=== PATIENT | male | born 1945 | race Caucasian/White ===

== ENCOUNTER → 2018-10-02 09:13 | Outpatient (CLI) | payer MEDICARE, SELFPAY ==
[2018-10-02 09:52] LABS: Add Manual Diff / Slide Review NO; Basophils Absolute Auto 100 /uL (0-100); Basophils Percent Auto 0.9 % (0-2); Eosinophils Absolute Auto 100 /uL (0-450); Eosinophils Percent Auto 1.1 % (2-4); Hematocrit 44.7 % (41-53); Lymphocytes Absolute Auto 2200 /uL (1100-4500); Lymphocytes Percent Auto 21.9 % (25-40); Mean Corpuscular HGB Conc 33.5 % (30-36); Mean Corpuscular Hemoglobin 29.1 PG (26-34); Mean Corpuscular Volume 86.8 fL (80-100); Monocytes Absolute Auto 900 /uL (0-900); Monocytes Percent Auto 8.5 % (3-14); Neutrophils Absolute Auto 7000 /uL (1500-7000); Neutrophils Percent Auto 67.6 % (50-75); Platelet Count 256 X10^3/uL (150-400); Red Blood Cell Count 5.15 X10^6/uL (4.5-5.9); Red Cell Distribution Width 14.5 % (11.6-14.8); White Blood Cell Count 10.3 X10^3/uL (4.5-11.0)
[2018-10-02 10:03] LABS: Alanine Aminotransferase 34 IU/L (21-72); Albumin 4.2 g/dL (3.5-5.0); Albumin Globulin Ratio 1.2 (1.0-2.8); Alkaline Phosphatase 97 U/L (38-126); Aspartate Aminotransferase 24 IU/L (17-59); Bilirubin Total 0.9 mg/dL (0.2-1.3); Blood Urea Nitrogen 18 mg/dL (9-20); Carbon Dioxide 26 mmol/L (22-32); Chloride 103 mmol/L (98-107); Cholesterol 149 mg/dL (140-199); Estimated Glomerular Filt Rate > 60.0 mL/min (>60); Globulin 3.4 g/dL (1.7-4.1); Glucose 145 mg/dL (80-110); HDL Cholesterol 40 mg/dL (40-60); HEMOLYSIS < 15 (0-50); LDL Cholesterol Calculated 89 mg/dL (<100); Potassium 4.5 mmol/L (3.4-5.1); Sodium 139 mmol/L (137-145); Total Protein 7.6 g/dL (6.3-8.2); Triglycerides 98 mg/dL (35-150); Uric Acid 6.9 mg/dL (3.5-8.5)
[2018-10-02 10:05] LABS: Erythrocyte Sedimentation Rate 11 MM/HR (0-15)
== END ==
PROVIDERS: PCP Internal Medicine; Visit Provider Podiatrist
DX: I10 Essential (primary) hypertension (principal); E78.5 Hyperlipidemia, unspecified
CPT/HCPCS: 36415; 80053; 80061; 84550; 85025; 85651

== ENCOUNTER → 2018-10-08 08:51 | Outpatient (CLI) | payer MEDICARE, SELFPAY ==
--- NOTE | 2018-10-08 | DI.MRI.S_ITS ---
PROCEDURE: MR FOOT LT WO/W CON INDICATIONS: LEFT TOE PAIN TECHNIQUE: Noncontrast sagittal T1 spin echo and T2 fast spin echo with fat saturation, long-axis T1 spin echo and T2 fast spin echo with fat saturation; short-axis T1 spin echo, proton density fast spin echo, and T2 fast spin echo with fat saturation through the forefoot. Post-contrast short axis, long axis, and sagittal T1 spin echo with fat saturation through the forefoot. COMPARISON: [facility] [place], CR, XR FOOT 3+ VIEWS LEFT, 09/30/2018, 10:42. FINDINGS: Image quality: Excellent. Bones and joints: No suspicious osseous enhancement. No definite bone marrow contusion or discrete fracture line seen. There is prominent osteophyte formation at the first MTP joint with dorsal involvement raises the possibility of hallux rigidus. First and TP joint effusion is present. There is mild marrow edema seen within the medial bipartite hallux sesamoid. Soft tissues: No suspicious soft tissue enhancement. There is first MTP synovitis. No definite erosions seen. The visualized plantar foot muscles demonstrate normal signal and bulk. Visualized flexor and extensor tendons appear intact, without tenosynovitis. The distal insertions of the peroneus brevis and longus tendons appear intact. The principal Lisfranc ligament appears intact. No soft tissue ganglion cysts or bursal fluid collections. Sagittal images demonstrate no evidence for plantar plate tears. 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 Please correlate clinically for possible hallux rigidus. Mild marrow edema within bipartite medial hallux sesamoid raises the possibility of acute or subacute sesamoiditis (although technically unknown etiology). First MTP joint synovitis, which could be reactive. No evidence of erosions. Dictated by: Min Prescott M.D. on 10/08/2018 at 11:44 Approved by: Min Prescott M.D. on 10/08/2018 at 11:54
== END ==
PROVIDERS: PCP Internal Medicine; Visit Provider Podiatrist
DX: M79.675 Pain in left toe(s) (principal); M19.072 Primary osteoarthritis, left ankle and foot; M65.872 Other synovitis and tenosynovitis, left ankle and foot
CPT/HCPCS: 73720

== ENCOUNTER → 2018-10-28 10:03 | Outpatient (CLI) | payer MEDICARE, SELFPAY ==
[2018-10-28 12:46] LABS: Vitamin B12 681 pg/mL (239-931)
== END ==
PROVIDERS: PCP Internal Medicine; Visit Provider Podiatrist
DX: G62.9 Polyneuropathy, unspecified (principal)
CPT/HCPCS: 36415; 82607

== ENCOUNTER → 2019-07-06 15:36 | Outpatient (ROUT) | payer MEDICARE, SELFPAY ==
[2019-07-06 16:18] LABS: Alanine Aminotransferase 18 IU/L (<50); Aspartate Aminotransferase 16 IU/L (17-59); BUN Creatinine Ratio 22.7 (6-22); Blood Urea Nitrogen 25 mg/dL (9-20); Calcium 9.8 mg/dL (8.4-10.2); Carbon Dioxide 27 mmol/L (22-32); Chloride 99 mmol/L (98-107); Cholesterol 163 mg/dL (140-199); Estimated Glomerular Filt Rate > 60.0 mL/min (>60); Glucose 112 mg/dL (80-110); HDL Cholesterol 65 mg/dL (40-60); HEMOLYSIS < 15 (0-50); LDL Cholesterol Calculated 73 mg/dL (<100); Potassium 4.8 mmol/L (3.4-5.1); Sodium 139 mmol/L (137-145); Triglycerides 125 mg/dL (35-150); Uric Acid 8.3 mg/dL (3.5-8.5)
== END ==
PROVIDERS: PCP Internal Medicine; Visit Provider Internal Medicine
DX: I10 Essential (primary) hypertension (principal); E78.5 Hyperlipidemia, unspecified; M10.472 Other secondary gout, left ankle and foot
CPT/HCPCS: 80048; 80061; 84450; 84460; 84550

== ENCOUNTER → 2019-07-13 14:15 | Outpatient (CLI) | payer MEDICARE, SELFPAY ==
--- NOTE | 2019-07-13 | DI.MRI.S_ITS ---
PROCEDURE: MR SHOULDER RT WO CON INDICATIONS: Pain in right shoulder TECHNIQUE: Noncontrast oblique coronal T2 fast spin echo with fat saturation, oblique sagittal T1 spin echo and T2 fast spin echo with fat saturation, axial T1 spin echo and T2 fast spin echo with fat saturation through the shoulder. COMPARISON: None. FINDINGS: Image quality: Diagnostic. Susceptibility artifact from prior rotator cuff tendon repair is seen.. Rotator cuff: There is full-thickness rupture of the distal supraspinatus and infraspinatus at their insertion on humeral head with 3.8 cm medial retraction of torn tendon fibers to the level of acromioclavicular joint. Distal subscapularis tendinosis and low-grade intrasubstance partial-thickness tear is also seen. Sagittal images demonstrate moderate supraspinatus and infraspinatus muscle atrophy. Bones and bursae: Extensive postsurgical changes in the acromioclavicular joint and greater tuberosity of humeral head are seen from prior rotator cuff tendon repair. Extensive susceptibility artifacts in superior lateral right shoulder soft tissue is also seen. No gross acute fracture or dislocation. Moderate osteoarthritic changes in acromioclavicular joint and glenohumeral joint are seen. Superior migration of humeral head in relation to glenoid is also noted. There is moderate amount of joint effusion and subacromial subdeltoid bursal fluid. No gross intra-articular loose body. Capsule and soft tissues: In the absence of intra-articular contrast, the labrum and glenohumeral ligaments appear intact. Intra-articular portion of long head biceps tendon is not well-seen, which may represent postsurgical changes versus proximal long head of biceps tendon rupture. The rotator interval appears normal, without fibrosis. The coracohumeral ligament is normal in thickness. IMPRESSION: 1. Prior rotator cuff tendon repair with postsurgical changes as above. 2. Full-thickness rupture of the distal supraspinatus and infraspinatus at their insertion on humeral head with 3.8 cm medial retraction of torn tendon fibers to the level of acromioclavicular joint. Tendinosis and low-grade intrasubstance partial-thickness tear involving distal subscapularis. Moderate supraspinatus and infraspina is muscle atrophy. 3. Extensive post surgical changes in acromioclavicular joint and humeral head. Moderate acromioclavicular joint and glenohumeral joint osteoarthritis. 4. No definite focal labral tear. Nonvisualization of intra-articular portion of long head of biceps tendon, which may represent postsurgical changes versus biceps tendon tear. Dictated by: Praveen Fuller M.D. on 07/13/2019 at 15:59 Approved by: Praveen Fuller M.D. on 07/13/2019 at 16:06
== END ==
PROVIDERS: PCP Internal Medicine; Visit Provider Orthopaedic Surgery
DX: M25.511 Pain in right shoulder (principal); M75.121 Complete rotator cuff tear or rupture of right shoulder, not specified as traumatic; M19.011 Primary osteoarthritis, right shoulder
CPT/HCPCS: 73221

== ENCOUNTER → 2019-09-22 09:55 | Outpatient (CLI) | payer MEDICARE, SELFPAY ==
--- NOTE | 2019-09-22 11:46 | DIET.PN ---
Diabetes Intake: Initial Assessment Assess: Mr. Yusuf is a 74 YOM referred for type 2 diabetes. He reports family history on his father?s side. He has had some prior education for pre-diabetes approximately 2 years ago, but feels discourages in ability to follow dietary suggestions. He stopped drinking soda and orange juice when he was diagnosed, but admits to eating out nearly daily. Since alf, he and his enjoy traveling and dining out at new places. He tries to replace starchy sides with vegetables, but generally orders entrees with sugary sauces. He is does not exercise, but is willing to start. He also admits to being comfortable with his weight, but recognizes the benefits of maintaining a healthy weight. He does monitor is FBG and weight daily. Labs: Per pt report: A1c: 6.7 (07/19) (7.5 at diagnosis) FB-120 Meds: metf 500 mg BID ; Lipitor: 10 mg Diet: per 24 hr recall: B: eggs or yogurt parfait L: salad w/ seafood D: Seafood/steak/pizza (usually dines out) Wt: 252 lb Ht: 69 in BMI: 37.2 DX: Altered nutrition related laboratory values related to impaired glucose metabolism, lack of previous exposure to nutrition information as evidenced by pt report, diagnosis of diabetes, previous diet high in refined carbohydrates. Intervention: 1. Completed intake assessment. Discussed barriers to care. 2. Discussed pathophysiology of diabetes. Reviewed A1c and its correlation to blood glucose numbers. Discussed recommended BG ranges. 3. Discussed importance of self-monitoring, how often, and when to check. 4. Reviewed hyper/hypoglycemia and treatment. 5. Reviewed safe disposal of equipment (strip/lancets/insulin needles). 6. Created SMART goals for pt self-care and success. 7. Discussed program curriculum outline and class needs based on individual goals. SMART Goals: 1. Pt would like to lose 12 lb (5% BW) in the next 3 mo through dietary changes including cutting down on portions sizes and limiting dining out and through beginning physical activity 20 min/day 3x/wk. Monitor/Evaluate: Anticipate good compliance. Pt will attend full DSME program. First class scheduled for Oct 14.
== END ==
PROVIDERS: PCP Internal Medicine; Visit Provider Internal Medicine
DX: E11.9 Type 2 diabetes mellitus without complications (principal)
CPT/HCPCS: G0108

== ENCOUNTER → 2019-10-14 09:52 | Outpatient (CLI) | payer MEDICARE, SELFPAY ==
--- NOTE | 2019-10-14 12:14 | DIET.PN ---
Diabetes: Healthy Eating 1 Intervention: ? Discussed pathophysiology of diabetes and impact of nutrition/diet on blood sugar control.? Discussed fed versus non-fed state.?? ? Reviewed importance of Balance, Variety, and Moderation. ? Discussed the effect of carbohydrates/protein/fat on blood sugar control.? ? Stressed importance of consistent carbohydrate intake at each meal and provided instructions for recommended servings/portions of carbohydrates/protein per meal. Provided educational material. ? Reviewed carbohydrate counting and measuring carbohydrate content via serving sizes and reading nutrition labels.? Provided handouts.?? ? Discussed the difference between simple versus complex carbohydrates and the effect of fiber on blood sugar control.? Discussed various methods to increase fiber content in diet. ? Discussed the plate method for creating more carbohydrate conscious balanced meals. ? Stressed importance of meal timing and not going >4-5 hours between meals. Encouraged adding protein to evening snack to support glucose control overnight. ? Discussed importance of making dietary habits part of lifestyle change.
== END ==
PROVIDERS: PCP Internal Medicine; Referring Provider Internal Medicine; Visit Provider Internal Medicine
DX: E11.9 Type 2 diabetes mellitus without complications (principal); Z71.3 Dietary counseling and surveillance
CPT/HCPCS: G0109

== ENCOUNTER → 2019-10-21 08:12 | Outpatient (CLI) | payer MEDICARE, SELFPAY ==
--- NOTE | 2019-10-21 | DI.US.S_ITS ---
PROCEDURE: US ABDOMEN COMPLETE INDICATIONS: PAIN TECHNIQUE: Real-time scanning was performed of the abdominal and retroperitoneal organs, with image documentation. COMPARISON: None. FINDINGS: Liver: Liver is normal in size and homogeneous in echotexture. Gallbladder: The gallbladder appears normal Biliary ducts: Intrahepatic bile ducts are non-dilated. Extrahepatic bile duct caliber measures 3.3 mm. Normal is 6-7 mm or less in diameter, or 10 mm or less post-cholecystectomy. Pancreas: Visualized portions of the pancreas are sonographically normal. Spleen: Spleen is normal in size and homogeneous in echotexture. Kidneys: Kidneys are normal in size and echotexture. Right kidney measures 11.7 cm long; left kidney measures 11.0 cm long. No hydronephrosis or nephrolithiasis. No solid masses. There is a right-sided simple cysts measuring up to 1.6 cm adjacent to the inferior right renal collecting system. Aorta: Visualized aorta is normal in caliber at less than 3 cm. Iliacs: Proximal common iliac arteries are normal in caliber at less than 2.5 cm. IVC: Intrahepatic inferior vena cava is patent. Miscellaneous: No free abdominal fluid. IMPRESSION: No acute disease. Source of epigastric pain is not seen. Dictated by: Jonatan Ware M.D. on 10/21/2019 at 10:53 Approved by: Jonatan Ware M.D. on 10/21/2019 at 10:56
== END ==
PROVIDERS: PCP Internal Medicine; Referring Provider Internal Medicine; Visit Provider Internal Medicine
DX: R10.10 Upper abdominal pain, unspecified (principal)
CPT/HCPCS: 76700

== ENCOUNTER → 2019-10-28 09:55 | Outpatient (CLI) | payer MEDICARE, SELFPAY ==
--- NOTE | 2019-10-28 12:08 | DIET.PN ---
Diabetes Physiology: Intervention 1. Diabetes physiology 2. Detecting and treatment of acute and chronic complications 3. Diagnosis of and difference in types of diabetes 4. Self-monitoring and pattern management a. Demonstrate glucometer and control testing b. Explain BG results and action to take when out of range. 5. Foot , eye, dental care 6. Medications a. Oral medication classification b. Injectable c. Insulin i. Injection protocol ii. Other delivery methods
== END ==
PROVIDERS: PCP Internal Medicine; Referring Provider Internal Medicine; Visit Provider Internal Medicine
DX: E11.9 Type 2 diabetes mellitus without complications (principal); Z71.3 Dietary counseling and surveillance
CPT/HCPCS: G0109

== ENCOUNTER → 2019-11-01 14:32 | Outpatient (CLI) | payer MEDICARE, SELFPAY ==
--- NOTE | 2019-11-01 16:48 | DIET.PN ---
Exercise/Lifestyle change: 1. Importance of exercise 2. FITT (frequency, intensity, time, type) 3. Strength training tips and guidelines 4. Glucose monitoring/ranges before and after 5. Proper foot attire 6. Developing strategies for behavior change 7. SMART Goal Setting 8. Home exercise routine demonstration (as a class)
== END ==
PROVIDERS: PCP Internal Medicine; Referring Provider Internal Medicine; Visit Provider Internal Medicine
DX: E11.9 Type 2 diabetes mellitus without complications (principal); Z71.3 Dietary counseling and surveillance
CPT/HCPCS: G0109

== ENCOUNTER → 2019-11-03 08:14 | Outpatient (CLI) | payer MEDICARE, SELFPAY ==
--- NOTE | 2019-11-03 | DI.NM.S_ITS ---
PROCEDURE: NM HETAL PERF SPECT REST & STR Rest and exercise myocardial perfusion SPECT with gated imaging and ejection fraction RADIOPHARMACEUTICAL: 24.7 mCi Tc-99m sestamibi IV at rest and 26.0 mCi Tc-99m sestamibi IV at peak exercise. A two day-protocol was performed. INDICATIONS: Chest pain, unspecified TECHNIQUE: Radiopharmaceutical was injected at peak stress test, and also at rest. SPECT images were obtained. SPECT myocardial perfusion images were displayed in short axis, horizontal long axis, and vertical long axis views. Gated images were reviewed using [employer] software. COMPARISON: None. CARDIAC STRESS: A standard Harsha treadmill exercise tolerance test was performed by the patient under the supervision of an attending staff. The patient exercised for 4 minutes and 41 seconds; functional aerobic impairment (RAQUEL) is +22%. Hemodynamic data: There is normal blood pressure and heart rate response to exercise stress. Patient achieved 90% of maximum predicted heart rate at peak exercise. Symptoms: Patient had significant dyspnea with exercise but denied chest pain. EKG: Resting ECG shows sinus rhythm with small Q waves in V1-V2 and T wave inversions in the anterior and lateral leads. With exercise, there was 1mm ST elevation in the V1-V2 leads. FINDINGS: Raw data: There is good myocardial labeling by radiotracer. No significant motion artifacts. [id number] ratio is 0.43 (normal is less than 0.38 for sestamibi tracer, and less than 0.50 for thallium tracer). Left ventricle function: Gated images demonstrate akinesis of the entire apex, mid-distal septum, and distal inferior wall. No transient ischemic dilation; TID is 1.05 (normal less than 1.3). The left ventricle resting end-diastolic volume is 184 mL. Left ventricle stress ejection fraction is 47%; normal values are above 45%. Myocardial perfusion: There is severe large fixed fixed defect in the entire apical cap extending to the distal anterior wall suggestive of prior anterior wall infarction with significant ischemia in the mid anterior wall extending to the entire septum. SSS 30, SRS 21. IMPRESSION: Highly abnormal treadmill nuclear stress test consistent prior LAD infarction and significant cody-infarct ischemia. 1) There is severe large fixed fixed defect in the entire apical cap extending to the distal anterior wall suggestive of prior anterior wall infarction with significant ischemia in the mid anterior wall extending to the entire septum. SSS 30, SRS 21. 2) Mildly enlarged left ventricle with mildly reduced systolic function (EF post stress 47%). There is akinesis of the entire apex, mid-distal septum, and distal inferior wall. Lung-heart ratio elevated at 0.43. 3) ECG changes suggestive of ischemia as there is mild (1mm) ST elevation in the V1-V2 leads. Small Q waves in the V1-V2 leads. 4) Significant dyspnea with exercise. 5) Reduced exercise tolerance (7.0 METs, RAQUEL +22%). Target heart rate achieved. Normal BP response to exercise. 6) No prior nuclear stress test available for comparison. Dictated by: Antonino Khalil MD on 11/04/2019 at 16:04 Approved by: Antonino Khalil MD on 11/04/2019 at 16:13
== END ==
PROVIDERS: PCP Internal Medicine; Referring Provider Internal Medicine; Visit Provider Internal Medicine
DX: R07.9 Chest pain, unspecified (principal); R94.39 Abnormal result of other cardiovascular function study; I25.9 Chronic ischemic heart disease, unspecified; R06.00 Dyspnea, unspecified
CPT/HCPCS: 78452; 93017; A9502

== ENCOUNTER → 2019-11-04 10:26 | Outpatient (CLI) | payer MEDICARE, SELFPAY ==
--- NOTE | 2019-11-04 14:56 | DIET.PN ---
Diabetes: Healthy Eating 2 Intervention: Fats effects on glucose, weight, heart disease, cholesterol Sat Vs Unsat Protein- animal and plant based options Low, med, high fat meats Sugar substitutes Sodium Health claims Grocery shopping guidelines Eating away from home Alcohol Sick day guidelines
== END ==
PROVIDERS: PCP Internal Medicine; Referring Provider Internal Medicine; Visit Provider Internal Medicine
DX: E11.9 Type 2 diabetes mellitus without complications (principal); Z71.3 Dietary counseling and surveillance
CPT/HCPCS: G0109

== ENCOUNTER → 2020-02-15 10:04 | Outpatient (CLI) | payer MEDICARE, SELFPAY ==
[2020-02-15 15:41] VITALS: BMI 34.7
== END ==
PROVIDERS: PCP Internal Medicine; Referring Provider Internal Medicine; Visit Provider Internal Medicine
DX: E11.9 Type 2 diabetes mellitus without complications (principal); Z71.3 Dietary counseling and surveillance
CPT/HCPCS: G0109

== ENCOUNTER 2020-03-16 01:21 | Emergency (ER) | payer MEDICARE, SELFPAY ==
[2020-03-16] VITALS (16 sets, daily range): BP systolic 114–156; BP diastolic 58–73; PULSE 55–69; RESP 11–21; TEMP 37.1; O2SAT 93–97; BMI 35.4
--- NOTE | 2020-03-16 01:40 | DI.RAD.S_ITS ---
PROCEDURE: XR CHEST 1V INDICATIONS: chest pain TECHNIQUE: One view of the chest was acquired. COMPARISON: None. FINDINGS: Surgical changes and devices: Median sternotomy wires. Lungs and pleura: Increased opacification noted in the lateral periphery of the left lung base. No pneumothorax. Mediastinum: Mediastinal contours appear normal. Heart size is normal. Bones and chest wall: No suspicious bony lesions. Overlying soft tissues appear unremarkable. IMPRESSION: Small focal opacity in the lateral periphery left lung base which could represent aspiration or pneumonia. Recommend follow-up chest x-ray in 30 days to exclude underlying mass. Dictated by: Abby Hayward MD, PhD on 03/16/2020 at 8:57 Approved by: Abby Hayward MD, PhD on 03/16/2020 at 8:58
[2020-03-16] MEDS: SODIUM CHLORIDE 0.9% 1,000 ML 150 ML IV (01:45)
[2020-03-16 01:48] LABS: Add Manual Diff / Slide Review NO; Basophils Absolute Auto 100 /uL (0-100); Basophils Percent Auto 0.8 % (0-2); Eosinophils Absolute Auto 300 /uL (0-450); Eosinophils Percent Auto 2.2 % (2-4); Hematocrit 40.2 % (41-53); Hemoglobin 13.2 g/dL (13.5-17.5); Lymphocytes Absolute Auto 3500 /uL (1100-4500); Lymphocytes Percent Auto 30.3 % (25-40); Mean Corpuscular HGB Conc 32.7 % (30-36); Mean Corpuscular Hemoglobin 27.2 PG (26-34); Mean Corpuscular Volume 83.2 fL (80-100); Monocytes Absolute Auto 1100 /uL (0-900); Monocytes Percent Auto 9.4 % (3-14); Neutrophils Absolute Auto 6600 /uL (1500-7000); Neutrophils Percent Auto 57.3 % (50-75); Platelet Count 290 X10^3/uL (150-400); Red Blood Cell Count 4.83 X10^6/uL (4.5-5.9); Red Cell Distribution Width 15.7 % (11.6-14.8); White Blood Cell Count 11.5 X10^3/uL (4.5-11.0)
[2020-03-16 01:49] LABS: Prothrombin Time 11.3 SECONDS (10.1-12.7)
[2020-03-16 01:52] LABS: PTT Partial Thromboplastin Tim 33 SECONDS (26.4-36.2)
[2020-03-16 01:53] LABS: Alanine Aminotransferase 18 IU/L (<50); Albumin 4.1 g/dL (3.5-5.0); Albumin Globulin Ratio 1.2 (1.0-2.8); Alkaline Phosphatase 122 U/L (38-126); Aspartate Aminotransferase 26 IU/L (17-59); BUN Creatinine Ratio 20.6 (6-22); Bilirubin Total 0.7 mg/dL (0.2-1.3); Blood Urea Nitrogen 21 mg/dL (9-20); Calcium 9.4 mg/dL (8.4-10.2); Carbon Dioxide 28 mmol/L (22-32); Chloride 100 mmol/L (98-107); Creatine Kinase 41 U/L (55-170); Estimated Glomerular Filt Rate > 60.0 mL/min (>60); Globulin 3.3 g/dL (1.7-4.1); Glucose 119 mg/dL (80-110); HEMOLYSIS < 15 (0-50); Lipase 363 U/L (23-300); Sodium 135 mmol/L (137-145); Total Protein 7.4 g/dL (6.3-8.2)
[2020-03-16 02:05] LABS: NT-proBNP (BNP-Adult 18+) 127 pg/mL (<125); Troponin I < 0.012 ng/mL (0.01-0.034)
[2020-03-16 02:21] LABS: Procalcitonin < 0.05 ng/mL (<0.5)
--- NOTE | 2020-03-16 02:42 | ED_ITS ---
HPI - Chest Pain General Chief Complaint: Chest Pain Stated Complaint: chest pain/thinks having heart attack Time Seen by Provider: 03/16/20 01:40 Source: patient Mode of arrival: Family Vehicle Limitations: no limitations History of Present Illness HPI narrative: [age] year old male nonsmoker with history of coronary artery disease and a one-way bypass in October at [facility] presents with a chief complaint retrosternal chest pressure that woke him up from sleep about 30 minutes prior to arrival. He states that it is achy in nature and denies any radiation, provocation or palliation. He states exertion does nothing to change his symptoms. He denies cardiac equivalent such as dizziness, weakness, lightheadedness or shortness of breath. He denies any nausea, vomiting or unexplained diaphoresis. He took 2 nitro at home and states it made no difference. He also to full-dose aspirin He denies any recent exertion or injury. He has had no runny nose, sore throat or cough MD complaint: chest pain Onset (ago): minute(s) Duration: constant Onset: during rest Pain location: substernal Severity: moderate Quality: aching Pain radiation: none Relieving factors: nothing Exacerbating factors: nothing Treatments prior to arrival chest pain: aspirin and nitroglycerin Related Data Allergies Allergy/AdvReac Type Severity Reaction Status Date / Time No Known Drug Allergies Allergy Verified 03/16/20 02:55 Review of Systems Constitutional Constitutional: Denies chills, Denies fatigue, Denies fever(s), Denies frequent falls, Denies lethargy and Denies weakness Eyes Eyes: Denies change in vision, Denies eye discharge, Denies irritation and Denies loss of vision ENT Ears, Nose, Mouth, and Throat: Denies change in voice, Denies dizziness, Denies neck pain, Denies sore throat and Denies throat swelling Cardiovascular Cardiovascular: Reports chest pain, Denies irregular heart rhythm, Denies ligh theadedness, Denies palpitations, Denies dyspnea, Denies dyspnea on exertion and Denies orthopnea Respiratory Respiratory: Denies cough, Denies dyspnea, Denies dyspnea on exertion and Denies wheezing Gastrointestinal Gastrointestinal: Denies abdominal pain, Denies change in bowel habits, Denies diarrhea, Denies nausea and Denies vomiting Musculoskeletal Musculoskeletal: Denies neck pain and Denies numbness Integumentary/Breasts Skin/Breast: Denies pruritus, Denies erythema, Denies rash and Denies wounds Neurologic Neurologic: Denies behavioral changes, Denies confusion, Denies dizziness, Denies frequent falls, Denies loss of vision, Denies numbness and Denies weakness Psychiatric Psychiatric: Denies anxiety, Denies behavioral changes, Denies confusion, Denies depression, Denies homicidal ideation and Denies suicidal ideation Endocrine Endocrine: Denies fatigue, Denies flushing and Denies palpitations Hematologic/Lymphatic Hematologic/Lymphatic: Denies easy bruising Allergic/Immunologic Allergic/Immunologic: Denies urticaria, Denies throat swelling and Denies wheezing Patient History Social History Smoking Status: Never smoker eating out: 1-3 times/week Type(s) of exercise: none Smoking Status: Never smoker alcohol intake frequency: a few times a week Substance Use Type: does not use Exam Narrative Exam Narrative: GENERAL: [74] year old patient appears stated age. Well- nourished, well-developed patient, in mild distress. HEAD: Atraumatic. Normocephalic. EYES: Pupils equal round and reactive. Extraocular motions intact. No scleral icterus. No injection or drainage. ENT: Nose without bleeding, purulent drainage. Throat without erythema, tonsillar hypertrophy or exudate. Airway patent. NECK: Trachea midline. Non tender CARDIOVASCULAR: Regular rate and rhythm without murmurs, gallops, or rubs. RESPIRATORY: Clear to auscultation. Breath sounds equal bilaterally. No wheezes, rales, or rhonchi. GASTROINTESTINAL: Abdomen soft, non-tender, nondistended. EXTREMITIES: No edema or joint tenderness. BACK: Nontender without deformity or crepitance. No flank tenderness. NEURO: AOx3. SKIN: No rash or erythema of visible areas Initial Vital Signs Initial Vital Signs: Vital Signs Temperature 98.7 F 03/16/20 01:30 Pulse Rate 69 03/16/20 01:30 Respiratory Rate 13 03/16/20 01:30 Blood Pressure 141/73 H 03/16/20 01:30 Pulse Oximetry 97 03/16/20 01:30 Course Course Course Narrative: no change with nitro no change with GI cocktail some improvement with Morphine (down to 2/10) call to Dr. Angulo (Cardio at [facility]). Given story and recent history he recommends transfer to [facility] for full workup including possible CTA for dissection. call to Dr. Zepeda (hospitalist). Happy to accept. We share the opinion that given low probability of bleeding or dissection that we will hold off on imaging here and perform up there. Orders Ordered: ED Orders 03/16/20 01:30 Complete Blood Count AUTO DIFF Stat Comprehensive Metabolic Panel Stat D Dimer Stat Lipase Stat NT-proBNP (BNP-Adult 18+) Stat Partial Thromboplastin Time Stat Procalcitonin Stat Prothrombin Time INR Stat Troponin & CK Cardiac Panel Stat 03/16/20 01:32 EKG-12 Lead Stat 03/16/20 01:40 XR chest 1V Stat 03/16/20 02:45 EKG-12 Lead Stat 03/16/20 03:36 Troponin I Stat Sodium Chloride (Normal Saline 0.9%) 1,000 mls @ 150 mls/hr IV CONT MCKENZIE Last Infusion: 03/16/20 07:29 Dose: 0 mls/hr Documented by: Admin: 03/16/20 01:45 Dose: 150 mls/hr Documented by: CORBIN Discontinued Medications Al Hydrox/Mg Hydrox/Simethicone 20 ml/ Lidocaine HCl 15 ml 0 ml PO NOW ONE Stop: 03/16/20 02:46 Last Admin: 03/16/20 02:56 Dose: 35 ml Documented by: CORBIN Morphine Sulfate (Morphine) 2 mg IV NOW ONE Stop: 03/16/20 03:29 Last Admin: 03/16/20 03:35 Dose: 2 mg Documented by: CORBIN Vital Signs Vital signs: Vital Signs - 8 hr 03/16/20 01:30 03/16/20 02:18 03/16/20 02:30 Temperature 98.7 F Pulse Rate 69 65 64 Respiratory Rate 13 15 20 Blood Pressure 141/73 H 114/58 L Pulse Oximetry 97 96 94 03/16/20 03:00 03/16/20 03:30 03/16/20 04:00 Temperature Pulse Rate 61 63 60 Respiratory Rate 12 21 12 Blood Pressure 131/63 124/59 L 135/63 Pulse Oximetry 95 94 95 03/16/20 04:30 03/16/20 05:00 03/16/20 05:30 Temperature Pulse Rate 58 L 58 L 60 Respiratory Rate 18 18 15 Blood Pressure 133/63 142/67 H 140/67 Pulse Oximetry 93 94 96 03/16/20 06:00 03/16/20 06:30 03/16/20 06:31 Temperature Pulse Rate 57 L 61 62 Respiratory Rate 18 17 18 Blood Pressure 134/63 156/70 H Pulse Oximetry 95 95 95 03/16/20 07:00 03/16/20 07:01 03/16/20 07:30 Temperature Pulse Rate 55 L 56 L 56 L Respiratory Rate 14 17 14 Blood Pressure 147/68 H Pulse Oximetry 95 96 95 03/16/20 07:31 Temperature Pulse Rate 57 L Respiratory Rate 11 L Blood Pressure 155/69 H Pulse Oximetry 96 MDM - Chest Pain Lab Data Result diagrams: 03/16/20 01:30 03/16/20 01:30 Labs: Lab Results 03/16/20 03/16/20 03/16/20 Range/Units 01:30 01:30 01:30 WBC 11.5 H (4.5-11.0) X10^3/uL RBC 4.83 (4.5-5.9) X10^6/uL Hgb 13.2 L (13.5-17.5) g/dL Hct 40.2 L (41-53) % MCV 83.2 (80-100) fL MCH 27.2 (26-34) PG MCHC 32.7 (30-36) % RDW 15.7 H (11.6-14.8) % Plt Count 290 (150-400) X10^3/uL Neut % (Auto) 57.3 (50-75) % Lymph % (Auto) 30.3 (25-40) % [place] % (Auto) 9.4 (3-14) % Eos % (Auto) 2.2 (2-4) % Baso % (Auto) 0.8 (0-2) % Neut # (Auto) 6600 (4910-5597) /uL Lymph # (Auto) 3500 (1302-9443) /uL [place] # (Auto) 1100 H (0-900) /uL Eos # (Auto) 300 (0-450) /uL Baso # (Auto) 100 (0-100) /uL PT 11.3 (10.1-12.7) SECONDS INR 1.0 (0.9-1.3) APTT 33 (26.4-36.2) SECONDS D-Dimer (<230) ng/mL Sodium 135 L (137-145) mmol/L Potassium 4.0 (3.4-5.1) mmol/L Chloride 100 (98-107) mmol/L Carbon Dioxide 28 (22-32) mmol/L BUN 21 H (9-20) mg/dL Creatinine 1.02 (0.66-1.25) mg/dL Estimated GFR > 60.0 (>60) mL/min BUN/Creatinine Ratio 20.6 (6-22) Glucose 119 H (80-110) mg/dL Calcium 9.4 (8.4-10.2) mg/dL Total Bilirubin 0.7 (0.2-1.3) mg/dL AST 26 (17-59) IU/L ALT 18 (<50) IU/L Alkaline Phosphatase 122 (38-126) U/L Total Creatine Kinase 41 L (55-170) U/L CK-MB (CK-2) TNP CK-MB (CK-2) Rel Index TNP Troponin I < 0.012 (0.01-0.034) ng/mL NT-Pro-B Natriuret Pep 127 H (<125) pg/mL Total Protein 7.4 (6.3-8.2) g/dL Albumin 4.1 (3.5-5.0) g/dL Globulin 3.3 (1.7-4.1) g/dL Albumin/Globulin Ratio 1.2 (1.0-2.8) Lipase 363 H (23-300) U/L Procalcitonin (<0.5) ng/mL COVID-19 PCR (Negative) 03/16/20 03/16/20 03/16/20 Range/Units 01:30 01:30 03:36 WBC (4.5-11.0) X10^3/uL RBC (4.5-5.9) X10^6/uL Hgb (13.5-17.5) g/dL Hct (41-53) % MCV (80-100) fL MCH (26-34) PG MCHC (30-36) % RDW (11.6-14.8) % Plt Count (150-400) X10^3/uL Neut % (Auto) (50-75) % Lymph % (Auto) (25-40) % [place] % (Auto) (3-14) % Eos % (Auto) (2-4) % Baso % (Auto) (0-2) % Neut # (Auto) (5808-1106) /uL Lymph # (Auto) (3906-6867) /uL [place] # (Auto) (0-900) /uL Eos # (Auto) (0-450) /uL Baso # (Auto) (0-100) /uL PT (10.1-12.7) SECONDS INR (0.9-1.3) APTT (26.4-36.2) SECONDS D-Dimer 241 H (<230) ng/mL Sodium (137-145) mmol/L Potassium (3.4-5.1) mmol/L Chloride (98-107) mmol/L Carbon Dioxide (22-32) mmol/L BUN (9-20) mg/dL Creatinine (0.66-1.25) mg/dL Estimated GFR (>60) mL/min BUN/Creatinine Ratio (6-22) Glucose (80-110) mg/dL Calcium (8.4-10.2) mg/dL Total Bilirubin (0.2-1.3) mg/dL AST (17-59) IU/L ALT (<50) IU/L Alkaline Phosphatase (38-126) U/L Total Creatine Kinase (55-170) U/L CK-MB (CK-2) CK-MB (CK-2) Rel Index Troponin I < 0.012 (0.01-0.034) ng/mL NT-Pro-B Natriuret Pep (<125) pg/mL Total Protein (6.3-8.2) g/dL Albumin (3.5-5.0) g/dL Globulin (1.7-4.1) g/dL Albumin/Globulin Ratio (1.0-2.8) Lipase (23-300) U/L Procalcitonin < 0.05 (<0.5) ng/mL COVID-19 PCR (Negative) 03/16/20 Range/Units 05:25 WBC (4.5-11.0) X10^3/uL RBC (4.5-5.9) X10^6/uL Hgb (13.5-17.5) g/dL Hct (41-53) % MCV (80-100) fL MCH (26-34) PG MCHC (30-36) % RDW (11.6-14.8) % Plt Count (150-400) X10^3/uL Neut % (Auto) (50-75) % Lymph % (Auto) (25-40) % [place] % (Auto) (3-14) % Eos % (Auto) (2-4) % Baso % (Auto) (0-2) % Neut # (Auto) (4088-8821) /uL Lymph # (Auto) (3941-8697) /uL [place] # (Auto) (0-900) /uL Eos # (Auto) (0-450) /uL Baso # (Auto) (0-100) /uL PT (10.1-12.7) SECONDS INR (0.9-1.3) APTT (26.4-36.2) SECONDS D-Dimer (<230) ng/mL Sodium (137-145) mmol/L Potassium (3.4-5.1) mmol/L Chloride (98-107) mmol/L Carbon Dioxide (22-32) mmol/L BUN (9-20) mg/dL Creatinine (0.66-1.25) mg/dL Estimated GFR (>60) mL/min BUN/Creatinine Ratio (6-22) Glucose (80-110) mg/dL Calcium (8.4-10.2) mg/dL Total Bilirubin (0.2-1.3) mg/dL AST (17-59) IU/L ALT (<50) IU/L Alkaline Phosphatase (38-126) U/L Total Creatine Kinase (55-170) U/L CK-MB (CK-2) CK-MB (CK-2) Rel Index Troponin I (0.01-0.034) ng/mL NT-Pro-B Natriuret Pep (<125) pg/mL Total Protein (6.3-8.2) g/dL Albumin (3.5-5.0) g/dL Globulin (1.7-4.1) g/dL Albumin/Globulin Ratio (1.0-2.8) Lipase (23-300) U/L Procalcitonin (<0.5) ng/mL COVID-19 PCR Negative (Negative) ECG Data Attestation: I personally reviewed and interpreted this ECG as follows: Prior ECG tracings: not available for review Interpretation: EKG is normal sinus rhythm rate [98 ] and free of any signs of ischemia or ectopy. No ST segmental elevation or depression. No T wave inversions x2 Critical Care Time Critical Care Time Critical Care Time: Yes Total Critical Care Time: 30 Attestation: The high probability of a clinically significant, sudden or life threatening deterioration of the [CV] system(s) required my full and direct attention, intervention and personal management. The aggregate critical care time was [30] minutes. This time is in addition to time spent performing reported procedures but includes the following: [x] Data Review and interpretation [x] Patient assessment and monitoring of vital signs [x] Documentation [x] Medication orders and management Discharge Plan Departure Patient Disposition: [facility] Clinical Impression: Chest pain Qualifiers: Chest pain type: unspecified Qualified Code(s): R07.9 - Chest pain, unspecified Discharge Date/Time: 03/16/20 07:50 Referrals: Teresa Stahl MD [Primary Care Provider] -
[2020-03-16] MEDS: MAG HYDROX/ALUMINUM/SIMETH SUS 20 ML, LIDOCAINE VISCOUS 2% 15 ML PO (02:56)
[2020-03-16 03:20] LABS: D Dimer 241 ng/mL (<230)
[2020-03-16] MEDS: MORPHINE 2 MG/ML INJ IV (03:35)
[2020-03-16 04:10] LABS: Troponin I < 0.012 ng/mL (0.01-0.034)
[2020-03-16 06:30] LABS: COVID19 -Nasal RAPID Negative (Negative)
== END 2020-03-16 07:50 | disposition short-term general hospital (02) ==
PROVIDERS: Emergency Provider Emergency Medicine; PCP Internal Medicine
DX: R07.9 Chest pain, unspecified (principal); Z11.59 Encounter for screening for other viral diseases
CPT/HCPCS: 36415; 71045; 80053; 82550; 83690; 83880; 84145; 84484; 85025; 85379; 85610; 85730; 87635; 93005; 93010; 96361; 96374; 99285; 99291; J2270

== ENCOUNTER → 2020-05-16 15:37 | Outpatient (ROUT) | payer MEDICARE, SELFPAY ==
[2020-05-16 16:08] LABS: Alanine Aminotransferase 20 IU/L (<50); Albumin Globulin Ratio 1.3 (1.0-2.8); Alkaline Phosphatase 103 U/L (38-126); Aspartate Aminotransferase 23 IU/L (17-59); BUN Creatinine Ratio 21.5 (6-22); Bilirubin Total 1.2 mg/dL (0.2-1.3); Blood Urea Nitrogen 23 mg/dL (9-20); Calcium 9.2 mg/dL (8.4-10.2); Carbon Dioxide 26 mmol/L (22-32); Chloride 103 mmol/L (98-107); Cholesterol 135 mg/dL (140-199); Estimated Glomerular Filt Rate > 60.0 mL/min (>60); Glucose 107 mg/dL (80-110); HDL Cholesterol 46 mg/dL (40-60); HEMOLYSIS < 15 (0-50); LDL Cholesterol Calculated 60 mg/dL (<100); Potassium 4.5 mmol/L (3.4-5.1); Sodium 140 mmol/L (137-145); Triglycerides 144 mg/dL (35-150); Uric Acid 7.5 mg/dL (3.5-8.5)
[2020-05-16 16:11] LABS: Hemoglobin A1C% w Est Avg Glu 6.7 % (4.0-6.0)
[2020-05-17 09:31] LABS: PSA, Total < 0.1 ng/mL (0.0-4.0)
== END ==
PROVIDERS: PCP Internal Medicine; Visit Provider Internal Medicine
DX: E78.5 Hyperlipidemia, unspecified (principal); I10 Essential (primary) hypertension; M1A.40X0 Other secondary chronic gout, unspecified site, without tophus (tophi); C61 Malignant neoplasm of prostate; E11.9 Type 2 diabetes mellitus without complications
CPT/HCPCS: 80053; 80061; 83036; 84153; 84154; 84550

== ENCOUNTER → 2020-09-27 10:38 | Outpatient (CLI) | payer MEDICARE, SELFPAY | PROVIDERS: PCP Internal Medicine; Referring Provider Internal Medicine; Visit Provider Internal Medicine | DX: E11.9 Type 2 diabetes mellitus without complications (principal) | CPT/HCPCS: G0109 ==

== ENCOUNTER → 2020-11-14 14:52 | Outpatient (ROUT) | payer OTHER, SELFPAY ==
[2020-11-14 16:03] LABS: Hemoglobin A1C% w Est Avg Glu 6.6 % (4.0-6.0)
[2020-11-14 17:35] LABS: Creatinine Urine Random 84.5 mg/dL
[2020-11-14 17:38] LABS: Alanine Aminotransferase 23 IU/L (<50); Albumin 3.9 g/dL (3.5-5.0); Albumin Globulin Ratio 1.4 (1.0-2.8); Alkaline Phosphatase 120 U/L (38-126); Aspartate Aminotransferase 23 IU/L (17-59); BUN Creatinine Ratio 17.9 (6-22); Bilirubin Total 0.6 mg/dL (0.2-1.3); Blood Urea Nitrogen 17 mg/dL (9-20); Calcium 9.1 mg/dL (8.4-10.2); Carbon Dioxide 24 mmol/L (22-32); Chloride 105 mmol/L (98-107); Cholesterol 121 mg/dL (140-199); Estimated Glomerular Filt Rate > 60.0 mL/min (>60); Globulin 2.8 g/dL (1.7-4.1); Glucose 121 mg/dL (80-110); HDL Cholesterol 41 mg/dL (40-60); HEMOLYSIS < 15 (0-50); LDL Cholesterol Calculated 62 mg/dL (<100); Potassium 4.3 mmol/L (3.4-5.1); Sodium 137 mmol/L (137-145); Total Protein 6.7 g/dL (6.3-8.2); Triglycerides 88 mg/dL (35-150)
[2020-11-14 17:43] LABS: Microalbumin Urine Random < 0.6 mg/dL (0-1.6)
== END ==
PROVIDERS: PCP Internal Medicine; Visit Provider Internal Medicine
DX: E11.9 Type 2 diabetes mellitus without complications (principal); E78.5 Hyperlipidemia, unspecified; I10 Essential (primary) hypertension
CPT/HCPCS: 80053; 80061; 82043; 82570; 83036

== ENCOUNTER → 2021-02-21 09:53 | Outpatient (CLI) | payer OTHER, SELFPAY ==
--- NOTE | 2021-02-21 09:59 | DI.RAD.S_ITS ---
PROCEDURE: XR CHEST 2V INDICATIONS: COUGH TECHNIQUE: 2 views of the chest were acquired. COMPARISON: [facility], CR, XR CHEST 1V, 03/16/2020, 1:38. FINDINGS: Surgical changes and devices: None. Lungs and pleura: Lungs are clear. No pleural effusions or pneumothorax. Mediastinum: Mediastinal contours are normal. Heart size is normal. Bones and chest wall: No suspicious bony abnormalities. Soft tissues appear unremarkable. IMPRESSION: Normal for age, source of current cough symptoms is not seen. Dictated by: Jonatan Ware M.D. on 02/21/2021 at 12:59 Approved by: Jonatan Ware M.D. on 02/21/2021 at 12:59
== END ==
PROVIDERS: PCP Internal Medicine; Referring Provider Internal Medicine; Visit Provider Internal Medicine
DX: R05 Cough (principal)
CPT/HCPCS: 71046

== ENCOUNTER → 2021-08-05 10:46 | Outpatient (CLI) | payer OTHER, SELFPAY ==
--- NOTE | 2021-08-05 | DI.RAD.S_ITS ---
PROCEDURE: XR CHEST 2V INDICATIONS: Chronic cough TECHNIQUE: 2 views of the chest were acquired. COMPARISON: [facility], CR, XR CHEST 2V, 02/21/2021, 10:06. FINDINGS: Surgical changes and devices: Maintained alignment of the sternum on wires. Lungs and pleura: No consolidation, pleural effusions or pneumothorax. Mediastinum: Mediastinal contours are normal. Heart size is normal. Bones and chest wall: No suspicious bony abnormalities. Soft tissues appear unremarkable. IMPRESSION: No acute cardiopulmonary abnormality. Dictated by: Syed Lee M.D. on 08/05/2021 at 11:32 Approved by: Syed Lee M.D. on 08/05/2021 at 11:32
== END ==
PROVIDERS: PCP Internal Medicine; Referring Provider Internal Medicine; Visit Provider Internal Medicine
DX: R05.3 Chronic cough (principal)
CPT/HCPCS: 71046

== ENCOUNTER → 2023-07-16 09:56 | Outpatient (CLI) | payer OTHER, SELFPAY ==
--- NOTE | 2023-07-16 | DI.RAD.S_ITS ---
PROCEDURE: XR FINGER RT MIN 2V INDICATIONS: Pain in right finger(s), fall on outstretched hand TECHNIQUE: AP hand, 2 views of the 4th finger(s) acquired. COMPARISON: None. FINDINGS: Bones: Small chip avulsion nondisplaced fracture noted at the base of the 4th distal phalanx dorsal surface Soft tissues: No suspicious soft tissue calcifications. IMPRESSION: Small 4th distal phalangeal tip avulsion fracture Approved by: Dylan Mccallum M.D. on 07/16/2023 at 19:55
== END ==
PROVIDERS: PCP Internal Medicine; Referring Provider Physician Assistant; Visit Provider Physician Assistant
DX: S62.664A Nondisplaced fracture of distal phalanx of right ring finger, initial encounter for closed fracture (principal); M79.644 Pain in right finger(s); W19.XXXA Unspecified fall, initial encounter
CPT/HCPCS: 73140

== ENCOUNTER 2023-10-07 07:31 | Day surgery (SDC) | payer OTHER, SELFPAY ==
--- NOTE | 2023-10-07 | PATH_ITS ---
[facility] Accession Number: [id number] No. of containers..01 Tissue . 01 Material submitted: . colon - POLYP AT 40 . 01 Diagnosis: Colon Polyp At 40 cm: Tubular adenoma. [facility] 10/09/2023 1115 Local . 01 Electronically signed: . Travis Elizondo MD, PhD, Pathologist NPI- [id number] . 01 Gross description: . POLYP AT 40: Received in formalin is 1 fragment(s) of alicea, soft tissue measuring 0.6 x 0.5 x 0.4 cm submitted entirely in 1 cassette(s) /JELANI 10/08/2023 1927 Local . 01 Pathologist provided ICD-10: D12.6 . 01 CPT . 759909 Performed at: 01 [facility] [address] [place] [id number] MD Mikhail Oneil MD Phone: [phone]
[2023-10-07 08:05] VITALS: BP 133/75; PULSE 63; RESP 18; TEMP 36.1; O2SAT 97
[2023-10-07] MEDS: LACTATED RINGERS 1,000 ML 42 ML IV (08:13)
--- NOTE | 2023-10-07 08:17 | PM.HP.1 ---
History of Present Illness History of Present Illness Date Patient Seen: 10/07/23 Chief complaint: SDC Narrative: Personal and family history of colon polyps need for screening colonoscopy [facility] Medical History (Updated 06/24/23 @ 15:47 by Silas Henriquez MD) Erectile dysfunction following interstitial seed therapy History of malignant neoplasm of prostate Social History Smoking Status: Never smoker eating out: 1-3 times/week Type(s) of exercise: none Meds Home Medications and Allergies Home Medications Medication Instructions Recorded Confirmed Type allopurinol 100 mg tablet 100 mg PO DAILY 06/24/23 06/24/23 History amlodipine 5 mg tablet 5 mg PO DAILY 06/24/23 10/07/23 History atorvastatin 20 mg tablet 20 mg PO DAILY 06/24/23 06/24/23 History betamethasone valerate 0.1 % 1 applic topical DAILY PRN 06/24/23 06/24/23 History topical cream metformin 1,000 mg tablet,extended 1,000 mg PO BID 06/24/23 10/07/23 History release 24hr metoprolol succinate 25 mg 25 mg PO BID 06/24/23 10/07/23 History tablet,extended release 24 hr Allergies Allergy/AdvReac Type Severity Reaction Status Date / Time No Known Drug Allergies Allergy Verified 10/07/23 08:01 Exam Vital Signs (past 8 hours): - 10/07/23 08:05 Temperature 96.9 F L Pulse Rate 63 Respiratory Rate 18 Blood Pressure 133/75 Pulse Oximetry 97 Oxygen Delivery Method Room Air Oxygen Delivery Method Room Air Narrative Exam Narrative: Oropharynx free of lesions Chest clear to auscultation percussion Cardiac exam reveals no S3 or murmur Assessment & Plan Assessment & Plan narrative: Personal and family history of colon polyps need for follow-up colonoscopy at an over 5 year interval. Risks, benefits, alternatives have been explained.
--- NOTE | 2023-10-07 08:18 | PM.OP.COLON ---
Operative Date/Time/Diagnoses Date of procedure: 10/07/23 Pre-op diagnosis: See indication and findings Procedure & Clinicians Study performed: Colonoscopy Indications: Personal and family history of colon polyps Surgeon: Chavez Valdez Procedure Notes Procedure in detail: After informed consent was obtained the patient was placed in left lateral decubitus position. The video colonoscope was introduced in the rectum slowly advanced cecum. Preparation was good. On slow withdrawal mucosa was carefully examined. The scope was removed. The patient tolerated procedure well. Blood loss none Complications none Sedation mac Findings 1. Tortuous colon but cecum eventually reached 2. 6 mm polyp semi pedunculated at 40 cm cold snared and removed completely 3. Large and small sigmoid colon diverticulosis 4. Moderate internal hemorrhoids Will be in touch regarding pathology and have follow-up in 5-7 years
[2023-10-07 09:02] VITALS: BP 105/57; PULSE 52; RESP 15; TEMP 36.2; O2SAT 94
[2023-10-07 09:07] VITALS: BP 95/62; PULSE 53; RESP 17; O2SAT 98
[2023-10-07 09:11] VITALS: BP 93/60; PULSE 55; RESP 12; O2SAT 97
[2023-10-07 09:17] VITALS: BP 105/69; PULSE 53; RESP 12; TEMP 36.2; O2SAT 96
== END 2023-10-07 09:30 | disposition home or self-care (01) ==
PROVIDERS: PCP Internal Medicine; Referring Provider Internal Medicine Gastroenterology; Visit Provider Internal Medicine Gastroenterology
PROC: 0DJD8ZZ Inspection of Lower Intestinal Tract, Via Natural or Artificial Opening Endoscopic (ICD-10-PCS; CPT 45378; principal; 2023-10-07 08:30)
DX: Z12.11 Encounter for screening for malignant neoplasm of colon (principal); K63.89 Other specified diseases of intestine; K57.30 Diverticulosis of large intestine without perforation or abscess without bleeding; K64.8 Other hemorrhoids; Z83.719 Family history of colon polyps, unspecified; Z86.010 Personal history of colon polyps; K63.5 Polyp of colon
CPT/HCPCS: 45385; J2704

== ENCOUNTER → 2024-05-19 10:09 | Outpatient (CLI) | payer MEDICARE, SELFPAY ==
--- NOTE | 2024-05-19 10:11 | DI.NM.S_ITS ---
PROCEDURE: NM HETAL PERF SPECT R&S PHARM Rest and pharmacological stress myocardial perfusion SPECT with gated imaging and ejection fraction RADIOPHARMACEUTICAL: 25.7 mCi Tc-99m tetrafosmin IV at rest and 26.1 mCi Tc-99m tetrafosmin IV at peak effect of pharmacological stress. [id number] was performed. INDICATIONS: CHEST PAIN/ANGINAL EQUIV, HIGH CAD RISK PQRS ATTESTATIONS: Measure 322 - Is this imaging test primarily performed on a low-risk surgery patient for preoperative evaluation within 30 days preceding their low-risk non-cardiac surgery? Low-risk surgery is defined as cardiac or myocardial infarction less than 1%, including (but not limited to) endoscopic procedures, superficial procedures, cataract surgery, and excisional breast surgery: Answer: No Measure 323 - Is this imaging test performed primarily for the monitoring of an asymptomatic patient who had percutaneous coronary intervention on the visit date or within 2 years of the visit date? Answer: No Measure 324 - Is this imaging test performed primarily for the initial detection and risk assessment on an asymptomatic, low coronary heart disease patient? Low CHD risk definition = clinicians should consider the maximum number of available patient factors used to estimate risk based on Bronson (ATP III criteria), typically age, gender, diabetes, smoking status, and use of blood pressure medication, and integrate age appropriate estimates for missing elements, such as LDL or standard blood pressure. Answer: No TECHNIQUE: Radiopharmaceutical was injected at peak stress test, and also at rest. SPECT images were obtained. SPECT myocardial perfusion images were displayed in short axis, horizontal long axis, and vertical long axis views. Gated images were reviewed using [employer] software. COMPARISON: None. CARDIAC STRESS: A pharmacologic stress test was performed under the supervision of an attending staff, using an infusion of 0.4 mg of Lexiscan. Hemodynamic data: There is normal blood pressure and heart rate response to pharmacologic stress. Symptoms: The patient denied anginal chest pain. Aminophylline: No EKG: No diagnostic changes of ischemia; no ectopy. FINDINGS: Raw data: There is good myocardial uptake of radiotracer. No significant motion artifacts. Lnhv-vc-cezfb ratio is not calculated (normal is less than 0.38 for tetrafosmin tracer). Left ventricle function: Gated images demonstrate normal left ventricular wall thickening. No segmental wall motion abnormalities. No transient ischemic dilation; TID is 1.02 (normal less than 1.3). Left ventricle resting end diastolic volume is 98 mL. Left ventricle stress ejection fraction is 69%; normal range is above 45%. Myocardial perfusion: Resting images had mild hypoperfusion of the basal to mid inferior segment. This perfusion defect was present in the stress images. There was also mild to moderate hypoperfusion in the septal segment of the stress images. No perfusion defects were noted on prone images. Therefore, the above-mentioned perfusion defects were most likely due to attenuation. IMPRESSION: Normal Lexiscan myocardial perfusion scan. Dictated by: Julien Fuller M.D. on 05/20/2024 at 13:06 Approved by: Julien Fuller M.D. on 05/20/2024 at 13:10
== END ==
LOC: NUCM 10:10
PROVIDERS: PCP Internal Medicine; Referring Provider Internal Medicine; Visit Provider Internal Medicine
DX: R07.9 Chest pain, unspecified (principal)
CPT/HCPCS: 78452; 93017; A9502; J2785

== ENCOUNTER → 2024-07-18 09:52 | Outpatient (CLI) | payer MEDICARE, SELFPAY ==
--- NOTE | 2024-07-18 09:55 | DI.RAD.S_ITS ---
PROCEDURE: XR RIBS LT 2V INDICATIONS: CHEST PAIN TECHNIQUE: 4 views of the ribs were acquired. COMPARISON: None. FINDINGS: Surgical changes and devices: None. Bones and chest wall: No acute displaced fracture. Background of osseous degenerative changes in the shoulder and spine. Lungs and pleura: Better seen on dedicated chest radiograph IMPRESSION: No acute displaced fracture. If there is high concern for occult injury, consider repeat radiography or cross-sectional imaging. Osseous degenerative changes of the spine and shoulder. Dictated by: True Lopez M.D. on 07/18/2024 at 14:00 Approved by: True Lopez M.D. on 07/18/2024 at 14:01
--- NOTE | 2024-07-18 09:55 | DI.RAD.S_ITS ---
PROCEDURE: XR CHEST 2V INDICATIONS: CHEST PAIN TECHNIQUE: 2 views of the chest were acquired. COMPARISON: [facility], CR, XR CHEST 2V, 08/05/2021, 10:53. [facility], CR, XR CHEST 2V, 02/21/2021, 10:06. FINDINGS: Surgical changes and devices: Sternotomy wires. Valve device is present. Lungs and pleura: No dense consolidation or pleural effusions. Possible focal scarring at the left lung base again seen. Mediastinum: Cardiomediastinal contours are unchanged. Bones and chest wall: Degenerative findings. IMPRESSION: No acute radiographic abnormality. Dictated by: True Lopez M.D. on 07/18/2024 at 13:59 Approved by: True Lopez M.D. on 07/18/2024 at 14:00
== END ==
PROVIDERS: PCP Internal Medicine; Referring Provider Family Medicine; Visit Provider Family Medicine
DX: R07.89 Other chest pain (principal)
CPT/HCPCS: 71046; 71100

== ENCOUNTER → 2024-10-14 09:41 | Outpatient (CLI) | payer MEDICARE, SELFPAY ==
--- NOTE | 2024-10-14 09:44 | DI.RAD.S_ITS ---
PROCEDURE: FL UPPER GI SMALL BOWEL INDICATIONS: NAUSEA COMPARISON: None. FINDINGS: Esophagus: Air-contrast views demonstrate a normal mucosal pattern. On single-contrast views, there is normal peristalsis. No fixed strictures, extrinsic mass effects, or diverticula. Small reducible hiatal hernia. No elicited gastroesophageal reflux. There is normal transit of a calibrated barium tablet through the esophagus. Stomach: Area of luminal narrowing is seen in the gastric body that persists on multiple projections. Normal rugal fold thickness. No mucosal masses or ulcers. The pylorus and duodenal bulb have a normal morphology. Small bowel: Duodenal folds appear normal in thickness. There is normal transit time of barium through the small intestine. Small bowel loops appear normal in caliber throughout. Jejunal and ileal folds are smooth and normal in thickness. No strictures, intraluminal masses, or extrinsic mass effects. The terminal ileum is identified and appears normal. IMPRESSION: 1. Luminal narrowing is seen in the proximal gastric body on multiple projections, which may be related to positioning and the degree of distension although extrinsic compression or mass are not excluded. Consider further evaluation with CT or endoscopy. 2. Small reducible hiatal hernia. 3. Normal transit time of contrast material through the small bowel. Approved by: Demond Gonzales M.D. on 10/14/2024 at 14:19
== END ==
LOC: RAD 09:42
PROVIDERS: PCP Internal Medicine; Referring Provider Family Medicine; Visit Provider Family Medicine
DX: K44.9 Diaphragmatic hernia without obstruction or gangrene (principal); R11.0 Nausea
CPT/HCPCS: 74240; 74248

== ENCOUNTER → 2024-11-05 10:25 | Outpatient (CLI) | payer MEDICARE, SELFPAY ==
--- NOTE | 2024-11-05 10:28 | DI.CT.S_ITS ---
PROCEDURE: CT ABDOMEN PELVIS W CON INDICATIONS: EPIGASTRIC PAIN, NAUSEA,F/U ON EXTRINSIC COMPRESS TECHNIQUE: After the administration of intravenous contrast, axial sections acquired from the lung bases to the pubic symphysis. Coronal and sagittal reformats were performed. For radiation dose reduction, the following was used: automated exposure control, adjustment of mA and/or kV according to patient size. COMPARISON: [place], [place] UPPER GI SMALL BOWEL, 10/14/2024, 10:27. FINDINGS: Image quality: Diagnostic. Lower Chest: Mild cardiomegaly. Impressive epicardial fat likely exaggerates the heart size on a chest film. ABDOMEN: Liver: No solid mass. Gallbladder: No radiopaque gallstones or wall thickening. Biliary ducts: No biliary dilation. Pancreas: No ductal dilation. Spleen: Size is within normal limits. Adrenal Glands: No adrenal nodules. Kidneys and Ureters: No hydronephrosis. No solid mass. No complex renal cystic lesion which requires follow up. Stomach and Bowel: There is no mass identified compressing on the gastric body. Normal colonic caliber, without significant wall thickening. Sigmoid diverticulosis and left colonic diverticulosis without evidence of acute diverticulitis. Peritoneum: No abnormal intraperitoneal fluid. No free air. Ventral Wall: No significant ventral hernia. Abdominal Nodes: No retroperitoneal or mesenteric adenopathy by size criteria. Vessels: Aorta and inferior vena cava are normal in size. Mild soft plaque in the infrarenal abdominal aorta. PELVIS: Pelvic Organs: Prostate implant seeds. Prostate appears appropriately small.. Bladder: No bladder wall thickening, accounting for underdistention. Pelvic Nodes: No enlarged lymph nodes. Miscellaneous: No inguinal hernias are seen. Bones: No aggressive osseous abnormality. There are multiple tiny foci of increased density in the bony structures, nonspecific, likely representing bone islands. However, bony metastatic disease is not excluded. For instance, on image 91 of series 2 is a left iliac lesion. Another left iliac lesion in the medial left iliac bone is present on image 102. There is a tiny focus in the left acetabulum on image 123. There is a tiny focus in the left femoral head on image 129. IMPRESSION: 1. No acute abdominal process noted. 2. Prostate implant seeds. 3. Nonspecific focal areas of sclerosis in bony structures, nonspecific, likely representing bone islands. However, cannot exclude small focal sclerotic metastatic foci. Comparison with prior studies may be helpful if they become available. 4. Mild diverticulosis. Dictated by: John Schaefer M.D. on 11/06/2024 at 11:40 Approved by: John Schaefer M.D. on 11/06/2024 at 11:46
== END ==
PROVIDERS: PCP Internal Medicine; Referring Provider Family Medicine; Visit Provider Family Medicine
DX: K57.30 Diverticulosis of large intestine without perforation or abscess without bleeding (principal); R19.06 Epigastric swelling, mass or lump; M89.9 Disorder of bone, unspecified; I51.7 Cardiomegaly
CPT/HCPCS: 74177; Q9967

== ENCOUNTER → 2025-07-04 08:41 | Outpatient (CLI) | payer MEDICARE, SELFPAY ==
--- NOTE | 2025-07-04 08:55 | DI.RAD.S_ITS ---
PROCEDURE: XR CHEST 2V INDICATIONS: PRURITIS TECHNIQUE: 2 views of the chest were acquired. COMPARISON: [facility], [place], XR CHEST 2V, 07/18/2024, 10:15. FINDINGS: Mild bibasilar subsegmental atelectasis some of which may be related to expiratory result. Mild bilateral perihilar and lower lobe peribronchial thickening. Bronchitis, viral infection, asthma or other process could be considered. Median sternotomy, left atrial appendage clip noted. Mildly prominent emelia, mildly prominent pulmonary vessels and/or hilar lymph nodes. Blunting of the left costophrenic angle may be related to small pleural effusion, ProAir all thickening, atelectatic changes, alveolar opacification or other process. IMPRESSION: Mild peribronchial thickening. Mild blunting left costophrenic angle. Mildly prominent emelia. If symptoms persist or worsen, or there is high clinical suspicion of thoracic abnormality, CT chest could be performed. Dictated by: Milton Love M.D. on 07/04/2025 at 10:12 Approved by: Milton Love M.D. on 07/04/2025 at 10:15
[2025-07-04 10:07] LABS: Add Manual Diff / Slide Review NO; Hematocrit 38.9 % (41-53); Hemoglobin 13.4 g/dL (13.5-17.5); Lymphocytes Absolute Auto 2400 /uL (1100-4500); Mean Corpuscular HGB Conc 34.5 % (30-36); Mean Corpuscular Hemoglobin 30.8 PG (26-34); Mean Corpuscular Volume 89.4 fL (80-100); Platelet Count 345 X10^3/uL (150-400)
[2025-07-04 10:21] LABS: Alanine Aminotransferase 21 IU/L (<50); Albumin 4.6 g/dL (3.5-5.0); Albumin Globulin Ratio 1.5 (1.0-2.8); Alkaline Phosphatase 96 U/L (38-126); Blood Urea Nitrogen 12 mg/dL (9-20); Calcium 9.3 mg/dL (8.4-10.2); Carbon Dioxide 24 mmol/L (22-32); Chloride 95 mmol/L (98-107); Estimated Glomerular Filt Rate > 60 mL/min (>60); Globulin 3.0 g/dL (1.7-4.1); Glucose 122 mg/dL (70-99); HEMOLYSIS < 15 (0-50); Potassium 4.8 mmol/L (3.4-5.1); Sodium 131 mmol/L (137-145); Total Protein 7.6 g/dL (6.3-8.2)
[2025-07-04 10:50] LABS: Appearance Urine UA CLEAR; Bilirubin Urine UA NEGATIVE (NEGATIVE); Color Urine UA YELLOW; Glucose Urine UA NEGATIVE (Negative); Ketones Urine UA NEGATIVE (NEGATIVE); Leukocyte Esterase Urine UA NEGATIVE (NEGATIVE); Nitrite Urine UA NEGATIVE (Negative); Occult Blood Urine UA NEGATIVE (Negative); Protein Urine UA NEGATIVE (Negative); Specific Gravity Urine UA 1.010 (1.000-1.035); Urobilinogen Urine UA 0.2 E.U./dL (0.2); pH Urine UA 6.0 (4.5-8.0)
[2025-07-04 10:52] LABS: Thyroid Stimulating Hormone 2.57 uIU/mL (0.47-4.68)
[2025-07-04 11:07] LABS: Culture Indicated Urine Cult Not Indicated
== END ==
PROVIDERS: PCP Internal Medicine; Referring Provider Dermatology; Visit Provider Dermatology
DX: L29.89 Other pruritus (principal); L28.0 Lichen simplex chronicus; L28.1 Prurigo nodularis; L29.9 Pruritus, unspecified; L98.9 Disorder of the skin and subcutaneous tissue, unspecified; F32.A Depression, unspecified; R05.9 Cough, unspecified; R53.81 Other malaise; R53.82 Chronic fatigue, unspecified; R68.89 Other general symptoms and signs; F43.9 Reaction to severe stress, unspecified; G47.09 Other insomnia; G47.01 Insomnia due to medical condition; G47.00 Insomnia, unspecified; F41.9 Anxiety disorder, unspecified
CPT/HCPCS: 36415; 71046; 80053; 81001; 83516; 83883; 84155; 84165; 84443; 85025; 85651; 86038; 86376; 86800; 87040; 87070; 87075; 87102; 87205

== ENCOUNTER → 2025-07-04 17:18 | Outpatient (ROUT) | payer MEDICARE, SELFPAY | PROVIDERS: PCP Internal Medicine; Visit Provider Dermatology | DX: L03.90 Cellulitis, unspecified (principal); Z85.828 Personal history of other malignant neoplasm of skin | CPT/HCPCS: 87070; 87075; 87102; 87205 ==

== ENCOUNTER → 2025-08-02 08:48 | Outpatient (CLI) | payer MEDICARE, SELFPAY ==
--- NOTE | 2025-08-02 08:48 | DI.CT.S_ITS ---
PROCEDURE: CT CHEST WO CON INDICATIONS: Chronic cough, pleural effusion on CXR TECHNIQUE: Noncontrast 5 mm thick sections acquired from the pulmonary apices to the posterior costophrenic angles. 1 mm lung window, 5 mm thick coronal and sagittal and 7 mm axial MIP reformats were then acquired. For radiation dose reduction, the following was used: automated exposure control, adjustment of mA and/or kV according to patient size. COMPARISON: None. FINDINGS: Image quality: Diagnostic. Lower Neck: No enlarged lymph nodes. Thyroid: No thyroid nodules which require sonographic follow up, per consensus guidelines. Axillae: No enlarged lymph nodes. Chest Wall: Simple appearing lipoma overlying the right scapula measuring 2.5 cm. Bones: Unremarkable. Lungs and Pleura: No pneumothorax or pleural effusions. Pleural fat hypertrophy within left major fissure. Basilar predominant bronchiectasis with mild peripheral reticulation. No honeycombing. Calcified tree-in-bud nodules, nonspecific. Heart: Heart size is largely. No pericardial effusion. Prior CABG. Thoracic Vessels: Ascending aortic aneurysm measuring 4.6 cm. Mediastinum and [place]: No enlarged lymph nodes. Esophagus: No wall thickening. No hiatal hernia. Upper Abdomen: Visualized upper abdomen solid organs and bowel loops appear normal. IMPRESSION: Ascending aortic aneurysm measuring 4.6 cm. Correlate with risk factors such as family history or connective tissue disease. If positive, cardiology referral is recommended. Imaging surveillance is recommended. Basilar predominant peripheral reticulation with associated bronchiectasis. Findings suggest fibrosis, possibly senescent, less likely due to interstitial lung disease. Correlate with PFTs. If abnormal, pulmonology referral could be considered. Dictated by: Jose Maria Pang M.D. on 08/02/2025 at 10:37 Approved by: Jose Maria Pang M.D. on 08/02/2025 at 10:41
== END ==
LOC: CT 08:48
PROVIDERS: PCP Internal Medicine; Referring Provider Internal Medicine; Visit Provider Internal Medicine
DX: J90 Pleural effusion, not elsewhere classified (principal); I71.21 Aneurysm of the ascending aorta, without rupture; R05.3 Chronic cough; Z95.1 Presence of aortocoronary bypass graft
CPT/HCPCS: 71250